=== PATIENT | female | born 1970 | race Caucasian/White ===

== ENCOUNTER 2019-12-23 10:25 | Emergency (ER) | payer OTHER ==
[~2019-12-23] VITALS: Ht 160 cm; Wt 52.2 kg
[2019-12-23] MEDS ORDERED: TOPROL XL50 M1 PO (10:47)
[2019-12-23] MEDS ORDERED: CLOZAPINE25 MG PO (10:48)
[2019-12-23] MEDS ORDERED: PROMETH-CODEIN 65 ML PO (12:36)
[2019-12-23] MEDS ORDERED: ZITHROMAX500 MG PO (12:36)
[2019-12-23] MEDS ORDERED: MUCINEX1200 MG PO (12:36)
== END 2019-12-23 13:33 | disposition home or self-care (01) ==
LOC: ER 10:25
DX: J06.9 Acute upper respiratory infection, unspecified (principal)

== ENCOUNTER 2020-07-27 11:20 | Outpatient (CLI) | payer OTHER ==
[~2020-07-27 11:20] MED LIST: CLOZAPINE25 MG PO; MUCINEX1200 MG PO; PROMETH-CODEIN 65 ML PO; TOPROL XL50 M1 PO; ZITHROMAX500 MG PO
== END 2020-07-27 13:33 | disposition home or self-care (01) ==
LOC: OFIC 805 11:20
PROVIDERS: ATTEND Otolaryngology Otology & Neurotology
DX: H69.81 Other specified disorders of Eustachian tube, right ear (principal); J31.0 Chronic rhinitis

== ENCOUNTER 2020-08-21 17:17 | Outpatient (CLI) | payer OTHER ==
[2020-09-05] MEDS ORDERED: SKELAXIN800 MG PO (14:14)
== END 2020-08-21 19:15 | disposition home or self-care (01) ==
LOC: PPH VACUNA 17:17
DX: Z23 Encounter for immunization (principal)

== ENCOUNTER 2020-08-24 08:53 | Outpatient (CLI) | payer OTHER | END 2020-08-24 10:00 | disposition home or self-care (01) | LOC: OFIC 805 08:53 | PROVIDERS: ATTEND Otolaryngology Otology & Neurotology | DX: J06.9 Acute upper respiratory infection, unspecified (principal); H69.81 Other specified disorders of Eustachian tube, right ear; J31.0 Chronic rhinitis ==

== ENCOUNTER → 2020-09-10 16:08 | Outpatient (CLI) | payer OTHER ==
[~2020-09-10 16:08] MED LIST changes: +SKELAXIN800 MG PO
== END | disposition home or self-care (01) ==
LOC: LAB 16:08
PROVIDERS: ATTEND Physical Medicine & Rehabilitation
DX: Z20.828 Contact with and (suspected) exposure to other viral communicable diseases (principal); Z11.59 Encounter for screening for other viral diseases

== ENCOUNTER 2020-10-23 15:21 | Outpatient (CLI) | payer OTHER | END 2020-10-23 18:00 | disposition home or self-care (01) | LOC: PPH VACUNA 15:21 | DX: Z23 Encounter for immunization (principal) ==

== ENCOUNTER 2020-12-17 09:34 | Outpatient (CLI) | payer OTHER | END 2020-12-17 09:38 | disposition home or self-care (01) | LOC: LAB 09:34 | DX: U07.1 COVID-19 (principal); Z03.818 Encounter for observation for suspected exposure to other biological agents ruled out; R05 Cough; R06.02 Shortness of breath; R50.9 Fever, unspecified ==

== ENCOUNTER → 2021-03-04 11:24 | Outpatient (CLI) | payer OTHER ==
[~2021-03-04 11:24] MED LIST changes: +ESTRACE1 MG PO
== END | disposition home or self-care (01) ==
LOC: LAB 11:24
PROVIDERS: ATTEND Emergency Medicine Pediatric Emergency Medicine
DX: Z03.818 Encounter for observation for suspected exposure to other biological agents ruled out (principal)

== ENCOUNTER 2021-06-19 14:20 | Outpatient (CLI) | payer OTHER | END 2021-06-19 15:00 | disposition home or self-care (01) | LOC: LAB 14:20 | PROVIDERS: ATTEND Emergency Medicine Pediatric Emergency Medicine | DX: Z03.818 Encounter for observation for suspected exposure to other biological agents ruled out (principal) ==

== ENCOUNTER 2021-07-25 07:59 | Outpatient (CLI) | payer OTHER | END 2021-07-25 10:50 | disposition home or self-care (01) | LOC: LAB 07:59 | DX: E03.8 Other specified hypothyroidism (principal); N80.3 Endometriosis of pelvic peritoneum; E78.2 Mixed hyperlipidemia; N95.1 Menopausal and female climacteric states; N92.6 Irregular menstruation, unspecified; E55.9 Vitamin D deficiency, unspecified; N39.0 Urinary tract infection, site not specified; R10.2 Pelvic and perineal pain; I10 Essential (primary) hypertension ==

== ENCOUNTER → 2021-08-15 11:00 | Outpatient (CLI) | payer OTHER | END | disposition home or self-care (01) | LOC: PPH VACUNA 11:00 | PROVIDERS: ATTEND Emergency Medicine Pediatric Emergency Medicine | DX: Z23 Encounter for immunization (principal) ==

== ENCOUNTER 2021-08-20 08:38 | Outpatient (CLI) | payer OTHER | END 2021-08-20 08:44 | disposition home or self-care (01) | LOC: MAMO-SONO 08:38 | PROVIDERS: ATTEND Obstetrics & Gynecology Obstetrics | DX: N64.4 Mastodynia (principal) ==

== ENCOUNTER → 2021-08-29 | Outpatient (CLI) | payer OTHER | END | disposition home or self-care (01) | LOC: PPH VACUNA 06:43 | PROVIDERS: ATTEND Emergency Medicine Pediatric Emergency Medicine | DX: Z23 Encounter for immunization (principal) ==

== ENCOUNTER 2021-09-30 13:59 | Outpatient (CLI) | payer OTHER | END 2021-09-30 14:00 | disposition home or self-care (01) | LOC: LAB 13:59 | PROVIDERS: ATTEND Obstetrics & Gynecology Obstetrics | DX: N95.1 Menopausal and female climacteric states (principal); E78.00 Pure hypercholesterolemia, unspecified; N39.0 Urinary tract infection, site not specified; E20.8 Other hypoparathyroidism ==

== ENCOUNTER 2021-12-13 09:53 | Outpatient (CLI) | payer OTHER | END 2021-12-13 09:59 | disposition home or self-care (01) | LOC: RAD 09:53 | PROVIDERS: ATTEND Chiropractor | DX: M99.01 Segmental and somatic dysfunction of cervical region (principal); M99.02 Segmental and somatic dysfunction of thoracic region; M99.03 Segmental and somatic dysfunction of lumbar region ==

== ENCOUNTER 2021-12-16 09:10 | Outpatient (CLI) | payer OTHER | END 2021-12-16 15:48 | disposition home or self-care (01) | LOC: LAB 09:10 | PROVIDERS: ATTEND Obstetrics & Gynecology Maternal & Fetal Medicine | DX: Z03.818 Encounter for observation for suspected exposure to other biological agents ruled out (principal); R06.02 Shortness of breath; R50.9 Fever, unspecified ==

== ENCOUNTER 2022-01-03 13:44 | Outpatient (CLI) | payer OTHER ==
[2022-01-03] MEDS ORDERED: ATACAND4 MG PO (16:09)
== END 2022-01-03 14:28 | disposition home or self-care (01) ==
LOC: RAD 13:44
PROVIDERS: ATTEND Plastic Surgery
DX: Z01.812 Encounter for preprocedural laboratory examination (principal)

== ENCOUNTER 2022-01-06 07:58 | Outpatient (CLI) | payer OTHER ==
[~2022-01-06 07:58] MED LIST changes: +ATACAND4 MG PO
== END 2022-01-06 13:34 | disposition home or self-care (01) ==
LOC: LAB 07:58
PROVIDERS: ATTEND Plastic Surgery
DX: N95.1 Menopausal and female climacteric states (principal); E78.00 Pure hypercholesterolemia, unspecified; N39.0 Urinary tract infection, site not specified; E20.8 Other hypoparathyroidism; E55.9 Vitamin D deficiency, unspecified; R79.1 Abnormal coagulation profile; E03.9 Hypothyroidism, unspecified; E53.8 Deficiency of other specified B group vitamins; R10.2 Pelvic and perineal pain

== ENCOUNTER → 2022-06-24 11:33 | Outpatient (CLI) | payer OTHER | END | disposition home or self-care (01) | LOC: LAB 11:33 | PROVIDERS: ATTEND Obstetrics & Gynecology Maternal & Fetal Medicine | DX: N95.1 Menopausal and female climacteric states (principal); E07.9 Disorder of thyroid, unspecified ==

== ENCOUNTER → 2022-07-04 13:43 | Outpatient (CLI) | payer OTHER | END | disposition home or self-care (01) | LOC: LAB 06-30 16:11 | PROVIDERS: ATTEND Ophthalmology | DX: D68.8 Other specified coagulation defects (principal); H25.012 Cortical age-related cataract, left eye ==

== ENCOUNTER 2022-08-15 08:00 | Outpatient (CLI) | payer OTHER | END 2022-08-15 08:05 | disposition home or self-care (01) | LOC: PPH VACUNA 08:00 | PROVIDERS: ATTEND Emergency Medicine Pediatric Emergency Medicine | DX: Z23 Encounter for immunization (principal) ==

== ENCOUNTER → 2022-08-15 13:20 | Outpatient (CLI) | payer OTHER | END | disposition home or self-care (01) | LOC: LAB 13:20 | PROVIDERS: ATTEND General Practice | DX: E34.9 Endocrine disorder, unspecified (principal); E07.9 Disorder of thyroid, unspecified; E55.9 Vitamin D deficiency, unspecified; E53.9 Vitamin B deficiency, unspecified; I11.9 Hypertensive heart disease without heart failure; I10 Essential (primary) hypertension; N30.00 Acute cystitis without hematuria; E78.5 Hyperlipidemia, unspecified ==

== ENCOUNTER 2022-12-01 09:05 | Outpatient (CLI) | payer OTHER | END 2022-12-01 09:08 | disposition home or self-care (01) | LOC: LAB 09:05 | DX: N95.1 Menopausal and female climacteric states (principal); E78.00 Pure hypercholesterolemia, unspecified; N39.0 Urinary tract infection, site not specified; E20.8 Other hypoparathyroidism; E55.9 Vitamin D deficiency, unspecified; R79.1 Abnormal coagulation profile; E03.9 Hypothyroidism, unspecified; E53.8 Deficiency of other specified B group vitamins; R10.2 Pelvic and perineal pain ==

== ENCOUNTER 2023-07-31 16:20 | Outpatient (CLI) | payer OTHER | END 2023-07-31 16:30 | disposition home or self-care (01) | LOC: PPH VACUNA 16:20 | PROVIDERS: ATTEND Emergency Medicine Pediatric Emergency Medicine | DX: Z23 Encounter for immunization (principal) ==

== ENCOUNTER 2023-08-27 07:47 | Outpatient (CLI) | payer OTHER | END 2023-08-27 07:59 | disposition home or self-care (01) | LOC: MAMO-SONO 07:47 | PROVIDERS: ATTEND Obstetrics & Gynecology Obstetrics | DX: N64.4 Mastodynia (principal); Z12.31 Encounter for screening mammogram for malignant neoplasm of breast ==

== ENCOUNTER 2023-09-11 07:44 | Outpatient (CLI) | payer OTHER | END 2023-09-11 07:45 | disposition home or self-care (01) | LOC: NUCLEAR 07:44 | PROVIDERS: ATTEND Internal Medicine | DX: I25.119 Atherosclerotic heart disease of native coronary artery with unspecified angina pectoris (principal); R07.9 Chest pain, unspecified ==

== ENCOUNTER 2024-01-22 12:08 | Outpatient (CLI) | payer OTHER | END 2024-01-22 12:13 | disposition home or self-care (01) | LOC: RAD 12:08 | PROVIDERS: ATTEND Orthopaedic Surgery | DX: M25.572 Pain in left ankle and joints of left foot (principal) ==

== ENCOUNTER 2024-01-28 10:22 | Outpatient (CLI) | payer OTHER | END 2024-01-28 10:28 | disposition home or self-care (01) | LOC: PRENATAL 10:22 | PROVIDERS: ATTEND Obstetrics & Gynecology Maternal & Fetal Medicine | DX: Z76.1 Encounter for health supervision and care of foundling (principal) ==

== ENCOUNTER → 2024-08-12 | Outpatient (CLI) | payer OTHER ==
[~2024-08-12] MED LIST changes: +FLUCONAZOLE150 MG PO; +PROPRANOLOL HCL10 MG PO
== END | disposition home or self-care (01) ==
LOC: PPH VACUNA
PROVIDERS: ATTEND Emergency Medicine Pediatric Emergency Medicine
DX: Z23 Encounter for immunization (principal)

== ENCOUNTER 2024-08-30 07:30 | Outpatient (CLI) | payer OTHER ==
[~2024-08-30 07:30] MED LIST changes: -FLUCONAZOLE150 MG PO
== END 2024-08-30 07:43 | disposition home or self-care (01) ==
LOC: MAMO-SONO 07:30
PROVIDERS: ATTEND Surgery
DX: N60.11 Diffuse cystic mastopathy of right breast (principal); N60.12 Diffuse cystic mastopathy of left breast

== ENCOUNTER 2024-10-25 12:03 | Outpatient (CLI) | payer OTHER ==
[~2024-10-25 12:03] MED LIST changes: +FLUCONAZOLE150 MG PO
== END 2024-10-25 14:13 | disposition home or self-care (01) ==
LOC: LAB 12:03
DX: A64 Unspecified sexually transmitted disease (principal); A17.9 Tuberculosis of nervous system, unspecified

== ENCOUNTER 2024-12-22 11:05 | Outpatient (CLI) | payer OTHER ==
[~2024-12-22 11:05] MED LIST changes: +LIDOCAINE-PRILO30 GM TD
== END 2024-12-22 11:06 | disposition home or self-care (01) ==
LOC: RAD 11:05
PROVIDERS: ATTEND Ophthalmology
DX: Z01.811 Encounter for preprocedural respiratory examination (principal)

== ENCOUNTER 2024-12-22 15:30 | Outpatient (CLI) | payer OTHER ==
[2024-12-22 15:56] LABS: HEMOGLOBIN 11.2 g/dL (12.0-15.00); MEAN CELL VOLUME 87.5 fL (80.00-100.00); MEAN CORPUSCULAR HEMOGLOBIN 29.6 pg (27.00-32.0); MEAN CORPUSCULAR HGB CONC 33.9 g/dl (32.0-36.0); PLATELET COUNT 276 K/uL (150-450); RED BLOOD COUNT 3.77 M/uL (4.00-6.00); RED CELL DISTRIBUTION WIDTH 13.1 % (11.5-14.5)
[2024-12-22 16:14] LABS: INR 0.99; PARTIAL THROMBOPLASTIN TIME 26.1 SECONDS (22.0-34.0); PROTHROMBIN TIME 10.8 SECONDS (9.0-11.5)
[2024-12-22 16:25] LABS: ALBUMIN 3.8 gm/dL (3.4-5.0); BILIRUBIN TOTAL 0.2 mg/dL (0.3-1.2); CALCIUM 9.8 mg/dL (8.5-10.1); CREATININE SERUM 1.08 mg/dL (0.55-1.02); GFR 52.67; GLOBULINA 3.4 G/DL (2.4-3.5); POTASSIUM 3.84 mEq/L (3.5-5.1); TOTAL PROTEIN 7.2 gm/dL (6.4-8.2)
== END 2024-12-22 16:52 | disposition home or self-care (01) ==
LOC: LAB 15:30
PROVIDERS: ATTEND Ophthalmology
DX: D68.8 Other specified coagulation defects (principal); H25.011 Cortical age-related cataract, right eye

== ENCOUNTER 2025-03-29 13:04 | Outpatient (CLI) | payer OTHER ==
[~2025-03-29 13:04] MED LIST changes: +SHINGRIX V50 MCG/0.5 IM
[2025-03-29 13:46] LABS: URINE APPEARANCE Clear; URINE BILIRRUBIN Negative (NEGATIVE); URINE BLOOD Negative; URINE COLOR Yellow; URINE GLUCOSE Negative (NEGATIVE); URINE KETONE Trace (NEGATIVE); URINE LEUKOCYTE Trace; URINE NITRATE Negative; URINE PROTEIN Negative (NEGATIVE)
[2025-03-29 13:49] LABS: URINE BACTERIA 1239.7 uL (0.0-1933); URINE EPITHELIAL CELLS 18.1 uL (0.0-38.8); URINE RBC 8.2 uL (0.0-20.8); URINE WBC 15.5 uL (0.0-23.2)
[2025-03-29 13:55] LABS: BASO % 0.7 % (0.1-1.2); EOS % 1.7 % (0.7-7.0); HEMATOCRIT 33.2 % (34.1-44.9); LYMPH # 2.19 (1.18-3.74); LYMPH % 36.3 % (19.3-53.1); MEAN CORPUSCULAR HEMOGLOBIN 29.1 pg (25.6-32.2); MONO # 0.51 (0.24-0.82); MONO % 8.5 % (4.7-12.5); NEUT # 3.18 (1.56-6.13); NEUT % 52.6 % (34.0-71.1); PLATELET COUNT 312 K/uL (163-369); RED BLOOD COUNT 3.78 M/uL (3.93-5.22); RED CELL DISTRIBUTION WIDTH 13.1 % (11.6-14.4)
[2025-03-29 14:03] LABS: URINE CAST 0.14 uL (0.0-1.40)
[2025-03-29 14:09] LABS: INR 0.97; PROTHROMBIN TIME 10.6 SECONDS (9.0-11.5)
[2025-03-29 14:55] LABS: CALCIUM 9.4 mg/dL (8.5-10.1); CREATININE SERUM 1.09 mg/dL (0.55-1.02); GFR 51.92; POTASSIUM 4.03 mEq/L (3.5-5.1)
[2025-03-29 15:13] LABS: RH POSITIVE
== END 2025-03-29 14:48 | disposition home or self-care (01) ==
LOC: LAB 13:04
DX: R07.89 Other chest pain (principal); I20.9 Angina pectoris, unspecified; I10 Essential (primary) hypertension

== ENCOUNTER 2025-09-07 14:43 | Outpatient (CLI) | payer OTHER | END 2025-09-07 14:44 | disposition home or self-care (01) | LOC: MAMO-SONO 14:43 | PROVIDERS: ATTEND Surgery | DX: N60.11 Diffuse cystic mastopathy of right breast (principal); N60.12 Diffuse cystic mastopathy of left breast ==